=== PATIENT | female | born 1995 | race Caucasian/White ===

== ENCOUNTER → 2017-08-24 | Outpatient (CLI) | payer OTHER ==
[~2017-08-24] MED LIST: NYST100010 TOP; TRIA.1%T TOP; Z.0.BCPILL PO
== END ==
LOC: HPND 10:31
PROVIDERS: ATTEND Family Medicine
DX: O35.1XX0 Maternal care for (suspected) chromosomal abnormality in fetus, not applicable or unspecified (principal); O44.42 Low lying placenta NOS or without hemorrhage, second trimester
CPT/HCPCS: 76805

== ENCOUNTER 2018-01-09 18:16 | Inpatient (IN) ==
[~2018-01-09 18:16] MED LIST changes: +Diphtheria/Tetanus/Pertussis Vaccine Inj 0.5 ML Syringe IM ONE; +Measles/Mumps/Rubella Vaccine Inj 0.5 ML Vial SQ ONE; -NYST100010 TOP; -TRIA.1%T TOP; -Z.0.BCPILL PO
--- NOTE | 2018-01-09 18:56 | ED ---
History of Present Illness Primary Care Physician: Family Practice Chief Complaint: Worsening contractions Weeks Gestation:: 38 Review of Systems All other systems reviewed negative except as stated in HPI PMFSH - Family History Family History: Family History (Last Updated 01/09/18 @ 12:21 by Hubert Campuzano MD, R2) Other Family history normal - Tobacco History Smoking Status: Former smoker - Travel History Recent Travel in the [place] Within the Last 8 Weeks: No Recent Travel Out of the Country Within the Last 8 Weeks: No Medications and Allergies Allergies Allergy/AdvReac Type Severity Reaction Status Date / Time guaifenesin Allergy Intermediate Rash Verified 01/09/18 11:31 Home Medications Medication Instructions Recorded Confirmed Type vit,[id number] 1 tab PO DAILY 01/09/18 01/09/18 History [PNV 29-1] Exam Vital signs: Vital Signs 01/09/18 18:30 Temperature 97.7 F Pulse Rate 78 Respiratory Rate 18 Blood Pressure 124/74 Intake & Output 01/08/18 01/09/18 01/09/18 18:59 06:59 18:59 Weight 78.471 kg Narrative: Patient seen earlier by family practice resident PGY 2 discharged cervix was 2- 350% effaced returns for increase in contraction pattern exam by attending 4-5/ 80/-2 mid posterior position soft Assessment and Plan - Diagnosis (1) 38 weeks gestation of Code(s): Z3A.38 - 38 weeks gestation of Status: Acute (2) Active labor at term Status: Acute - Plan Admit Discharge Plan - Discharge Disposition Patient Disposition: 30 Still Patient - Physicians Team ED Provider: Chrissie Reynoso Primary Care Provider: NOT REQUIRED,
[2018-01-09] MEDS ORDERED: Oxytocin 30 Units/500ml Premix 30 UNITS/500 ML BAG IV.SIG ONE (18:57)
[2018-01-09] MEDS ORDERED: fentaNYL Citrate Inj 100 MCG/2 ML Ampul IV.PUSH PRN ×2 (18:57)
[2018-01-09] MEDS ORDERED: Naloxone Inj 0.4 MG/ML Vial IV.PUSH PRN ×2 (18:57→21:56)
[2018-01-09] MEDS ORDERED: Sodium Chlor 0.9% Inj 500 ML IV.SIG PRN (18:57)
[2018-01-09] MEDS ORDERED: Sod Chloride 0.9% Inj 1,000 ML IV.CONT PRN (18:57)
[2018-01-09] MEDS ORDERED: Citric Acid/Sodium Citrate Liq 30 ML UDC PO SCH (19:00)
--- NOTE | 2018-01-09 19:06 | P.HPOB ---
History of Present Illness Primary Care Physician: NOT REQUIRED Chief Complaint: Worsening contractions History of Present Illness: 22-year-old at 38/0 presented to the OB ED with complaints of worsening contractions. Patient was evaluated earlier today in the OB ED for contractions and concerns for leakage of fluid. Amnisure at that time was negative and a speculum exam did not show pooling. Patient was found to be 2-3/ 50/-3 at that time. Patient had a category 1 tracing and was sent home. Patient is returned to the OB ED with pelvic pressure, worsening contractions. Denies any big gush of fluid, vaginal bleeding, decreased movement. Patient has had an uncomplicated and is GBS negative Previous delivery was an uncomplicated vaginal delivery Weeks Gestation:: 38 - Inpatient Certification I certify that the inpatient services were ordered in accordance with Medicare regulations governing the order. This includes certification that hospital inpatient services are reasonable and necessary and in the case of services not specified as inpatient-only under 42 CFR 419.22(n), that they are appropriately provided as inpatient services in accordance to with the 2-midnight benchmark under 43 CFR 412.3(e) Estimated Total Length of Stay (Days): 2 Plans for Post Hospital Care: Home Review of Systems All other systems reviewed negative except as stated in HPI PMFSH - Medical / Surgical Hx Neg / Unobtainable Medical Problems Denied: Yes Surgical History: No Previous Surgery - Family History Family History: Family History (Last Reviewed 01/09/18 @ 19:02 by Hubert Campuzano MD, R2) Other Family history normal - Tobacco History Smoking Status: Former smoker - Travel History Recent Travel in the [place] Within the Last 8 Weeks: No Recent Travel Out of the Country Within the Last 8 Weeks: No Medications and Allergies Active Medications: Active Medications Fentanyl Citrate (Fentanyl Inj) 50 mcg IV.PUSH Q1H PRN PRN Reason: Pain Scale 3 - 5 Fentanyl Citrate (Fentanyl Inj) 100 mcg IV.PUSH Q1H PRN PRN Reason: PAIN SCALE 6 TO 10 Allergies Allergy/AdvReac Type Severity Reaction Status Date / Time guaifenesin Allergy Intermediate Rash Verified 01/09/18 11:31 Home Medications Medication Instructions Recorded Confirmed Type vit,[id number] 1 tab PO DAILY 01/09/18 01/09/18 History [PNV 29-1] Exam Vital signs: Vital Signs 01/09/18 18:30 Temperature 97.7 F Pulse Rate 78 Respiratory Rate 18 Blood Pressure 124/74 Intake & Output 01/08/18 01/09/18 01/09/18 18:59 06:59 18:59 Weight 78.471 kg Narrative: GENERAL: Well-nourished, well-developed patient. SKIN: Warm and dry. HEAD: Normocephalic and atraumatic. EYES: No scleral icterus. No injection or drainage. ENT: No nasal drainage noted. Mucous membranes pink. Airway patent. NECK: Supple, trachea midline. No JVD. CARDIOVASCULAR: Regular rate and rhythm without murmurs, gallops, or rubs. RESPIRATORY: Breath sounds equal bilaterally. No accessory muscle use. ABDOMEN/GI: Abdomen soft, non-tender, bowel sounds present, no rebound, no guarding Gravid to 38 weeks size GENITOURINARY: External Genitalia: intact and normal in appearance Cervix: Midposition Dilatation: 4-5 Effacement: 80 Station: -2 Presentation: Vertex Membranes: Intact Uterine Contractions: Every 4-5 minutes FHT's: Category: 1 Baseline: 140 Reactive: Yes Variability: Moderate Decels: Absent EXTREMITIES: No cyanosis or edema. BACK: Nontender without obvious deformity. No CVA tenderness. NEUROLOGICAL: Awake and alert. Motor and sensory grossly within normal limits. Five out of 5 muscle strength in all muscle groups. Normal speech. Caprini VTE Risk Assessment Caprini VTE Risk Assessment: Moderate/High Risk (score >= 2) Caprini Risk Assessment Model: Point Value = 1 Point Value = 2 Point Value = 3 Point Value = 5 Age 41-60 Minor surgery BMI > 25 kg/m2 Swollen legs Varicose veins or History of unexplained or recurrent spontaneous Oral contraceptives or hormone replacement Sepsis (< 1 month) Serious lung disease, including pneumonia (< 1 month) Abnormal pulmonary function Acute myocardial infarction Congestive heart failure (< 1 month) History of inflammatory bowel disease Medical patient at bed rest Age 61-74 Arthroscopic surgery Major open surgery (> 45 min) Laparoscopic surgery (> 45 min) Malignancy Confined to bed (> 72 hours) Immobilizing plaster cast Central venous access Age >= 75 History of VTE Family history of VTE Factor V Leiden Prothrombin [id number] Lupus anticoagulant Anticardiolipin antibodies Elevated serum homocysteine Heparin-induced thrombocytopenia Other congenital or acquired thrombophilia Stroke (< 1 month) Elective arthroplasty Hip, pelvis, or leg fracture Acute spinal cord injury (< 1 month) Prophylaxis Regimen: Total Risk Factor Score Risk Level Prophylaxis Regimen 0-1 Low Early ambulation 2 Moderate Order ONE of the following: *Sequential Compression Device (SCD) *Heparin 5000 units SQ BID 3-4 Higher Order ONE of the following medications: *Heparin 5000 units SQ TID *Enoxaparin/Lovenox 40 mg SQ daily (WT < 150 kg, CrCl > 30 mL/min) *Enoxaparin/Lovenox 30 mg SQ daily (WT < 150 kg, CrCl > 10-29 mL/min) *Enoxaparin/Lovenox 30 mg SQ BID (WT < 150 kg, CrCl > 30 mL/min) AND/OR *Sequential Compression Device (SCD) 5 or more Highest Order ONE of the following medications: *Heparin 5000 units SQ TID (Preferred with Epidurals) *Enoxaparin/Lovenox 40 mg SQ daily (WT < 150 kg, CrCl > 30 mL/min) *Enoxaparin/Lovenox 30 mg SQ daily (WT < 150 kg, CrCl > 10-29 mL/min) *Enoxaparin/Lovenox 30 mg SQ BID (WT < 150 kg, CrCl > 30 mL/min) AND *Sequential Compression Device (SCD) Assessment and Plan - Diagnosis (1) 38 weeks gestation of Code(s): Z3A.38 - 38 weeks gestation of Status: Acute (2) Active labor at term Status: Acute - Plan 22-year-old at 38/0 presented OB ED with worsening contractions. Patient had presented to the OB ED earlier today and has had cervical change since her first visit. Now /-2. Will admit for labor and delivery -GBS negative, uncomplicated -Category 1 tracing on admission -will plan for artificial rupture of membranes for augmentation of labor -Otherwise routine labor and delivery orders
[2018-01-09] MEDS ORDERED: fentaNYL 2MCG-Bupiv 0.125% Epi 150 ML EPIDURAL ONE (19:39)
[2018-01-09 19:50] LABS: Baso % (Auto) 0.5 % (0.0-2.0); Eos # (Auto) 0.1 th/mm3 (0.0-0.4); Eos % (Auto) 0.9 % (0.0-4.0); Hematocrit 29.2 % (35.0-46.0); Hemoglobin 9.4 gm/dL (11.6-15.3); Lymph # (Auto) 1.1 th/mm3 (1.0-4.8); Lymph % (Auto) 12.5 % (9.0-44.0); Mean Corpuscular Hemoglobin 23.2 pg (27.0-34.0); Mean Corpuscular Volume 72.6 fL (80.0-100.0); Mean Platelet Volume 9.5 fL (7.0-11.0); Mono # (Auto) 0.8 th/mm3 (0.0-0.9); Mono % (Auto) 8.9 % (0.0-8.0); Neut # (Auto) 6.6 th/mm3 (1.8-7.7); Neut % (Auto) 77.2 % (16.0-70.0); Platelet Count 200 th/mm3 (150-450); Red Blood Count 4.03 mil/mm3 (4.00-5.30); Red Cell Distribution Width 17.3 % (11.6-17.2); White Blood Count 8.5 th/mm3 (4.0-11.0)
[2018-01-09] MEDS ORDERED: Lidocaine 1%/Epinephrine 1:200,000 PF Inj 30 ML Vial ONE (20:00)
[2018-01-09 20:10] LABS: Amphetamine Urine With Conf Neg (Neg); Benzodiazepine Urine With Conf Neg (Neg); Bilirubin,Urine Negative (Negative); Clarity,Urine Clear (Clear); Color,Urine Yellow (Yellw/Straw); Glucose,Urine (UA) Negative (Negative); Leukocyte Esterase,Urine Negative (Negative); Mucus,Urine Few /lpf (Occasional); Nitrite,Urine Negative (Negative); Squamous Epithelial Cell,Urine 1 /hpf (0-5)
[2018-01-09] MEDS ORDERED: fentaNYL Citrate Inj 100 MCG/2 ML Ampul EPIDURAL ONE (20:34)
[2018-01-09] MEDS ORDERED: fentaNYL 2MCG-Bupiv 0.125% Epi 150 ML EPIDURAL PRN (21:00)
[2018-01-09] MEDS ORDERED: Oxytocin 30 Units/500ml Premix 30 UNITS/500 ML BAG IV.CONT PRN (21:56)
[2018-01-09] MEDS ORDERED: Zolpidem Tartrate 5 MG Tablet PO PRN (21:56)
[2018-01-09] MEDS ORDERED: Benzocaine 20% Top Spray 60 ML Can TOPICAL PRN (21:56)
[2018-01-09] MEDS ORDERED: Bisacodyl 10 MG Supp RECTAL PRN (21:56)
[2018-01-09] MEDS ORDERED: Witch Hazel 50%/Glyderin 12.5% 40 Pad Jar RECTAL PRN (21:56)
--- NOTE | 2018-01-09 22:01 | P.OBDELI ---
Weeks Gestation: 38 Artificial Rupture of Membrane: Yes Anesthesia: Epidural Episiotomy: none Vaginal Delivery: Normal Presentation: Occiput anterior Nuchal Cord: x1 (easily reduced) Delayed Cord Clamping (45 sec): Yes Laceration: None Estimated blood loss (mL): 100 Infant: Male Additional Information: deceleration, attending at bedside, intrauterine resuscitation performed with good recovery. proceeded with delivery
[2018-01-10] MEDS: Senna/Docusate Sodium 8.6/50 MG Tablet PO SCH (08:36)
--- NOTE | 2018-01-10 08:41 | P.PNOB ---
Subjective Interval history: Patient is a 22-year-old delivered at 38 weeks and 0 days. Patient is day 1 after . Patient's pain is well-controlled. Patient reports eating and drinking without any nausea or vomiting. Patient reports minimal bleeding. Patient has passed gas but no bowel movements. Patient is walking without lower extremity pain or shortness of breath. Patient reports desire for contraception and breast-feeding. Objective Vital Signs/I&O: Vital Signs 01/09/18 18:30 01/09/18 19:16 01/09/18 19:30 Temperature 97.7 F 98.1 F Pulse Rate 78 79 Respiratory Rate 18 18 Blood Pressure 124/74 128/80 01/09/18 19:59 01/09/18 20:10 01/09/18 20:15 Temperature Pulse Rate 71 84 75 Respiratory Rate Blood Pressure 126/80 101/84 125/70 01/09/18 20:25 01/09/18 20:30 01/09/18 20:50 Temperature Pulse Rate 68 81 67 Respiratory Rate Blood Pressure 125/69 131/69 125/75 01/09/18 21:09 01/09/18 21:25 01/09/18 21:55 Temperature Pulse Rate 74 88 84 Respiratory Rate 18 Blood Pressure 129/63 121/71 01/09/18 22:15 01/09/18 22:24 01/09/18 22:31 Temperature Pulse Rate 71 76 Respiratory Rate 18 18 Blood Pressure 126/73 121/72 01/09/18 22:45 01/09/18 22:46 01/09/18 23:09 Temperature 97.6 F Pulse Rate 67 67 Respiratory Rate 18 18 Blood Pressure 122/71 114/71 01/09/18 23:39 01/09/18 23:55 Temperature 97.8 F Pulse Rate 52 L 59 L Respiratory Rate 18 18 Blood Pressure 119/73 136/78 Intake & Output 01/09/18 01/10/18 01/10/18 18:59 06:59 18:59 Weight 78.471 kg Result Diagrams: 01/09/18 19:10 Objective Remarks: GENERAL: Well-nourished, well-developed patient. CARDIOVASCULAR: Regular rate and rhythm without murmurs, gallops, or rubs. RESPIRATORY: Breath sounds equal bilaterally. No accessory muscle use. ABDOMEN/GI: Abdomen soft, non-tender. Fundus: Firm, non-tender at umbilicus. GENITOURINARY: Light to moderate bleeding. EXTREMITIES: No cyanosis or edema, non-tender, without signs of DVT. Medications and IVs: Active Medications Acetaminophen (Tylenol) 650 mg PO Q4H PRN PRN Reason: PAIN SCALE 1 TO 2 Al Hydroxide/Mg Hydroxide (Milk Of Magnesia Liq) 30 ml PO Q12H PRN PRN Reason: Mild Constipation Benzocaine (Americaine 20% Top [place]) 1 spray TOPICAL Q4H PRN PRN Reason: For Perineum Discomfort Bisacodyl (Dulcolax Supp) 10 mg RECTAL DAILY PRN PRN Reason: SEVERE CONSITIPATION Ephedrine Sulfate (Ephedrine/Ns Syringe) 10 mg IV.PUSH UNSCH PRN PRN Reason: SEE LABEL COMMENTS Stop: 01/10/18 20:34 Fentanyl/Bupivacaine/Sodium Chlor (Fentanyl 2 Mcg-Bupiv 0.125% Epi) 150 mls @ 11 mls/hr EPIDURAL PRN PRN PRN Reason: for Labor Pain Last Admin: 01/09/18 20:00 Dose: 11 mls/hr Oxytocin (Pitocin 30 Units/Ns 500 Ml Premix) 30 units in 500 mls @ 100 mls/hr IV.CONT UNSCH PRN PRN Reason: Heavy bleeding Ibuprofen (Motrin) 800 mg PO Q8H PRN PRN Reason: For Cramping Last Admin: 01/10/18 00:20 Dose: 800 mg Lactulose (Lactulose Liq) 30 ml PO DAILY PRN PRN Reason: SEVERE CONSITIPATION Miscellaneous Information (Misc Information) 1 each OTHER UNSCH PRN PRN Reason: SEE LABEL COMMENTS Stop: 01/10/18 20:34 Miscellaneous Information (Misc Information) 1 each OTHER UNSCH PRN PRN Reason: SEE LABEL COMMENTS Stop: 01/10/18 20:34 Naloxone HCl (Narcan Inj) 0.1 mg IV.PUSH Q2M PRN PRN Reason: for opiate reversal Ondansetron HCl (Zofran Odt) 4 mg PO Q6H PRN PRN Reason: NAUSEA OR VOMITING Senna/Docusate Sodium (Helen-Colace) 1 tab PO BID ROSI Sennosides (Senokot) 17.2 mg PO Q12H PRN PRN Reason: Moderate Constipation Sodium Chloride (Ns Flush) 2 ml IV.FLUSH BID ROSI Sodium Chloride (Ns Flush) 2 ml IV.FLUSH PRN PRN PRN Reason: FLUSH AFTER USING IV ACCESS Witch Cynthia/Glycerin (Tucks Pads) 1 applicatio RECTAL QID PRN PRN Reason: HEMORRHOIDS Zolpidem Tartrate (Ambien) 5 mg PO HS PRN PRN Reason: SLEEP Assessment and Plan - Diagnosis (1) Vaginal delivery Code(s): O80 - Encounter for full-term uncomplicated delivery Status: Acute - Plan Patient is a 22-year-old delivered at 38 weeks and 0 days. Patient is day 1 after . Patient was counseled to do 6 weeks of pelvic rest. Patient was counseled to follow up in 6 weeks. Patient requested follow-up and contraception. --AF VSS --Continue routine care --Motrin and Tylenol when necessary for pain --Encourage OOB --Pelvic rest for 6 weeks will need follow-up appointment at that time. --Contraception: Undecided --Anticipate discharge tomorrow
[2018-01-10 08:46] LABS: Rubella IgG Antibody 197.4 IU/mL (10.0-500.0)
[2018-01-10 08:50] LABS: Hepatitits B Surface Antigen Nonreactive (Nonreactive)
[2018-01-10 09:27] LABS: Hepatitis A IgM Antibody Nonreactive (Nonreactive)
[2018-01-10] MEDS: Acetaminophen 325 MG Tablet PO PRN (21:49)
[2018-01-11] MEDS: Senna/Docusate Sodium 8.6/50 MG Tablet PO SCH ×2 (02:33→09:06)
[2018-01-11] MEDS: Acetaminophen 325 MG Tablet PO PRN (05:32)
--- NOTE | 2018-01-11 08:34 | P.PNOB ---
Subjective Post day: 2 Interval history: Patient is a 22-year-old delivered at 38 weeks. Patient is day 2 after NVD. Patient's pain is well-controlled. Patient reports minimal bleeding. Patient reports eating and drinking without any nausea or vomiting. Patient has passed gas but has not had a bowel movement. Patient denies chest pain and shortness of breath. Patient has been ambulating; she denies lower extremity pain. Patient reports desire for contraception, which she will discuss with her PCP at her first follow-up visit. Patient has decided to breast-feed. Objective Vital Signs/I&O: Vital Signs 01/10/18 08:35 01/10/18 19:20 01/10/18 20:08 Temperature 97.7 F 98.0 F 98.1 F Pulse Rate 72 86 75 Respiratory Rate 18 16 18 Blood Pressure 111/69 124/74 131/69 Result Diagrams: 01/09/18 19:10 Objective Remarks: GENERAL: Well-nourished, well-developed patient. CARDIOVASCULAR: Regular rate and rhythm without murmurs, gallops, or rubs. RESPIRATORY: Breath sounds equal bilaterally. No accessory muscle use. ABDOMEN/GI: Abdomen soft, non-tender. Fundus: Firm, non-tender at umbilicus. GENITOURINARY: Light to moderate bleeding. EXTREMITIES: No cyanosis or edema, non-tender, without signs of DVT. Medications and IVs: Active Medications Acetaminophen (Tylenol) 650 mg PO Q4H PRN PRN Reason: PAIN SCALE 1 TO 2 Last Admin: 01/11/18 05:32 Dose: 650 mg Al Hydroxide/Mg Hydroxide (Milk Of Magnisr[place] Liq) 30 ml PO Q12H PRN PRN Reason: Mild Constipation Benzocaine (Americaine 20% [place]) 1 spray TOPICAL Q4H PRN PRN Reason: For Perineum Discomfort Bisacodyl (Dulcolax Supp) 10 mg RECTAL DAILY PRN PRN Reason: SEVERE CONSITIPATION Fentanyl/Bupivacaine/Sodium Chlor (Fentanyl 2 Mcg-Bupiv 0.125% Epi) 150 mls @ 11 mls/hr EPIDURAL PRN PRN PRN Reason: for Labor Pain Last Admin: 01/09/18 20:00 Dose: 11 mls/hr Oxytocin (Pitocin 30 Units/Ns 500 Ml Premix) 30 units in 500 mls @ 100 mls/hr IV.CONT UNSCH PRN PRN Reason: Heavy bleeding Ibuprofen (Motrin) 800 mg PO Q8H PRN PRN Reason: For Cramping Last Admin: 01/11/18 02:28 Dose: 800 mg Lactulose (Lactulose Liq) 30 ml PO DAILY PRN PRN Reason: SEVERE CONSITIPATION Naloxone HCl (Narcan Inj) 0.1 mg IV.PUSH Q2M PRN PRN Reason: for opiate reversal Ondansetron HCl (Zofran Odt) 4 mg PO Q6H PRN PRN Reason: NAUSEA OR VOMITING Senna/Docusate Sodium (Helen-Colace) 1 tab PO BID [facility] Last Admin: 01/11/18 02:33 Dose: 1 tab Sennosides (Senokot) 17.2 mg PO Q12H PRN PRN Reason: Moderate Constipation Sodium Chloride (Ns Flush) 2 ml IV.FLUSH BID [facility] Last Admin: 01/11/18 00:20 Dose: Not Given Sodium Chloride (Ns Flush) 2 ml IV.FLUSH PRN PRN PRN Reason: FLUSH AFTER USING IV ACCESS Witch Cynthia/Glycerin (Tucks Pads) 1 applicatio RECTAL QID PRN PRN Reason: HEMORRHOIDS Zolpidem Tartrate (Ambien) 5 mg PO HS PRN PRN Reason: SLEEP Assessment and Plan - Diagnosis (1) 38 weeks gestation of Code(s): Z3A.38 - 38 weeks gestation of Status: Acute (2) Vaginal delivery Code(s): O80 - Encounter for full-term uncomplicated delivery Status: Acute - Plan Patient is a 22-year-old delivered at 38 weeks. Patient is day 2 after NVD. Continue routine care. Motrin and Percocet when necessary for pain. Encourage OOB. Pelvic rest for 6 weeks will need follow-up appointment at that time. Contraception: To discuss with PCP. Anticipate discharge today. russell Thompson. The exam, history, and the medical decision-making described in the above note were completed with the assistance of the resident physician. I reviewed and agree with the findings presented. I attest that I had a [id number] encounter with the patient on the same day, with a physical exam and personally performed and documented my assessment and findings in the medical record. Due to anemia on admission will get H&H prior to D/C and discharge with FeSuflate. -Charissa Thompson MD
[2018-01-11 09:40] VITALS: BP 122/79; PULSE 77; RESP 17
[2018-01-11 09:41] VITALS: TEMP 98.5
== END 2018-01-11 11:05 | disposition home or self-care (01) ==
LOC: HOBED 18:16 → H2E 18:55 → H1EA 23:49
PROVIDERS: ADMIT Obstetrics & Gynecology; ATTEND Obstetrics & Gynecology